=== PATIENT | female | born 1940 | race Two or more races ===

== ENCOUNTER 2022-02-23 08:30 | Inpatient (IN) | payer OTHER ==
[~2022-02-23] VITALS: Ht 157.5 cm; Wt 66.2 kg
[2022-02-23] MEDS ORDERED: COZAAR100 MG PO (11:51)
[2022-02-23] MEDS ORDERED: AMLODIPINE-OLM1 EAC2 PO (11:53)
[2022-02-23] MEDS ORDERED: ZIAC 10/6.25 MG1 TAB PO (11:53)
[2022-02-23] MEDS ORDERED: [UNRECOGNIZED DRUG - OTHER] PO (11:53)
[2022-02-23] MEDS ORDERED: CRESTOR10 MG PO (11:54)
[2022-02-23] MEDS ORDERED: HYDROCH PO (12:01)
[2022-02-23] MEDS ORDERED: NORVASC5 MG PO (12:58)
[2022-02-23] MEDS ORDERED: DYRENIUM50 MG PO (12:59)
[2022-02-23] MEDS ORDERED: BISOPROLOL FUMA10 MG PO (13:00)
[2022-02-23] MEDS ORDERED: HYDROCHLOROTHIA25 MG PO (13:01)
[2022-03-08] MEDS ORDERED: TRIAMTERENE-HC1 EAC1 (10:38)
[2022-03-08] MEDS ORDERED: CLOPIDOGREL BIS75 MG (10:39)
== END 2022-03-08 13:05 | disposition home or self-care (01) | DRG 742 ==
LOC: O/R 03-04 05:57 → SURH 03-04 08:30 → OB/GYN 03-04 15:22
PROVIDERS: Surgery; ADMIT Obstetrics & Gynecology Gynecologic Oncology; ATTEND Obstetrics & Gynecology Gynecologic Oncology
PROC: 0UT20ZZ Resection of Bilateral Ovaries, Open Approach (ICD-10-PCS; 2022-03-04)
PROC: 07BC0ZZ Excision of Pelvis Lymphatic, Open Approach (ICD-10-PCS; 2022-03-04)
PROC: 0DTF0ZZ Resection of Right Large Intestine, Open Approach (ICD-10-PCS; 2022-03-04)
PROC: 0DBW0ZZ Excision of Peritoneum, Open Approach (ICD-10-PCS; 2022-03-04)
PROC: 0DBU0ZZ Excision of Omentum, Open Approach (ICD-10-PCS; 2022-03-04)
PROC: 07BC0ZZ Excision of Pelvis Lymphatic, Open Approach (ICD-10-PCS; 2022-03-04)
PROC: 0UT90ZZ Resection of Uterus, Open Approach (ICD-10-PCS; principal; 2022-03-04 09:10)
PROC: 0UT70ZZ Resection of Bilateral Fallopian Tubes, Open Approach (ICD-10-PCS; 2022-03-04 09:10)
DX: N84.0 Polyp of corpus uteri (principal); C18.1 Malignant neoplasm of appendix; C78.6 Secondary malignant neoplasm of retroperitoneum and peritoneum; N80.03 Adenomyosis of the uterus; N83.292 Other ovarian cyst, left side; N83.291 Other ovarian cyst, right side; Z20.822 Contact with and (suspected) exposure to COVID-19

== ENCOUNTER 2022-03-16 17:33 | Inpatient (IN) | payer OTHER ==
[~2022-03-16] VITALS: Ht 157.5 cm; Wt 64.4 kg
[~2022-03-16 17:33] MED LIST: AMLODIPINE-OLM1 EAC2 PO; BISOPROLOL FUMA10 MG PO; CLOPIDOGREL BIS75 MG; COZAAR100 MG PO; CRESTOR10 MG PO; DYRENIUM50 MG PO; HYDROCH PO; HYDROCHLOROTHIA25 MG PO; NORVASC5 MG PO; TRIAMTERENE-HC1 EAC1; ZIAC 10/6.25 MG1 TAB PO; [UNRECOGNIZED DRUG - OTHER] PO
[2022-03-17] MEDS ORDERED: DOCUSATE SODIU100 MG (09:26)
[2022-03-17] MEDS ORDERED: WAL-TUSSIN100 MG/5 M (09:26)
[2022-03-17] MEDS ORDERED: CLOPIDOGREL BIS75 MG (09:27)
[2022-03-25] MEDS ORDERED: PEPCID AC20 MG PO (11:58)
[2022-03-25] MEDS ORDERED: LEVOFLOXACIN500 MG PO (11:58)
== END 2022-03-25 22:23 | disposition home or self-care (01) | DRG 863 ==
LOC: ER 17:33 → SURH 03-17 08:24
PROVIDERS: ADMIT Surgery; ATTEND Surgery
DX: T81.49XA Infection following a procedure, other surgical site, initial encounter (principal); K91.872 Postprocedural seroma of a digestive system organ or structure following a digestive system procedure; C18.1 Malignant neoplasm of appendix; I10 Essential (primary) hypertension

== ENCOUNTER 2024-02-06 12:28 | Emergency (ER) | payer OTHER ==
[~2024-02-06] VITALS: Ht 157.5 cm; Wt 66.7 kg
[~2024-02-06 12:28] MED LIST changes: +DOCUSATE SODIU100 MG; +LEVOFLOXACIN500 MG PO; +PEPCID AC20 MG PO; +WAL-TUSSIN100 MG/5 M
[2024-02-06] MEDS ORDERED: PROTONIX20 MG PO (13:49)
[2024-02-06] MEDS ORDERED: 0.9 % SODIUM CHLORIDE 1,000 ML IV SCH (14:15)
[2024-02-06 14:56] LABS: HEMATOCRIT 40.2 % (36.0-45.00); HEMOGLOBIN 13.3 g/dL (12.0-15.00); MEAN CELL VOLUME 88.8 fL (80.00-100.00); MEAN CORPUSCULAR HEMOGLOBIN 29.4 pg (27.00-32.0); MEAN CORPUSCULAR HGB CONC 33.1 g/dl (32.0-36.0); PLATELET COUNT 240 K/uL (150-450); RED BLOOD COUNT 4.52 M/uL (4.00-6.00); RED CELL DISTRIBUTION WIDTH 13.5 % (11.5-14.5)
[2024-02-06] MEDS ORDERED: FAMOTIDINE/PF 20 MG in 0.9 % SODIUM CHLORIDE 8 ML IV PUSH STA (17:12)
[2024-02-06] MEDS ORDERED: ONDANSETRON HCL 2 MG/ML VIAL IV ONE (17:15)
[2024-02-06 17:21] LABS: URINE APPEARANCE Clear; URINE BILIRRUBIN Negative (NEGATIVE); URINE BLOOD Negative; URINE COLOR Yellow; URINE GLUCOSE Negative (NEGATIVE); URINE KETONE Negative (NEGATIVE); URINE LEUKOCYTE Small; URINE NITRATE Negative; URINE PROTEIN Negative (NEGATIVE); URINE UROBILINOGEN 0.2 E.U./dl
[2024-02-06 17:22] LABS: URINE BACTERIA 40.3 uL (0.0-1933); URINE EPITHELIAL CELLS 10.4 uL (0.0-38.8); URINE WBC 62.8 uL (0.0-23.2)
[2024-02-06 17:26] LABS: URINE CAST 0.73 uL (0.0-1.40); URINE RBC 0.7 uL (0.0-20.8)
[2024-02-06 17:50] LABS: CALCIUM 9.2 mg/dL (8.5-10.1); CREATININE SERUM 1.43 mg/dL (0.55-1.02); GFR 35.22; POTASSIUM 3.98 mEq/L (3.5-5.1)
[2024-02-06] MEDS ORDERED: LEVSIN/SL0.125 MG SL (18:05)
[2024-02-06] MEDS ORDERED: PROTONIX40 M1 PO (18:05)
== END 2024-02-06 18:26 | disposition home or self-care (01) ==
LOC: ER 12:30
PROVIDERS: Emergency Medicine
DX: K52.89 Other specified noninfective gastroenteritis and colitis (principal); Z91.041 Radiographic dye allergy status; Z91.013 Allergy to seafood; Z88.6 Allergy status to analgesic agent; E78.00 Pure hypercholesterolemia, unspecified; I10 Essential (primary) hypertension; Z93.8 Other artificial opening status
CPT/HCPCS: 36415; 96365; 96366; 99282; J2405; J3490; J7030